=== PATIENT | male | born 1985 | race Caucasian/White ===

== ENCOUNTER 2023-06-27 13:15 | Emergency (ER) | payer MEDICAID ==
[~2023-06-27] VITALS: Ht 177.8 cm; Wt 77.0 kg
[~2023-06-27 13:15] MED LIST: CYCL-1 PO; IBUP-1985 PO
[2023-06-27 13:27] VITALS: BP 126/86; PULSE 88; RESP 18; TEMP 97.8; O2SAT 99
[2023-06-27] MEDS ORDERED: methadone 10mg tablet PO ONE (13:50)
== END 2023-06-27 15:19 | disposition home or self-care (01) ==
LOC: ER 13:15
DX: F11.10 Opioid abuse, uncomplicated (principal); Z88.0 Allergy status to penicillin; Z76.0 Encounter for issue of repeat prescription
CPT/HCPCS: 99283

== ENCOUNTER 2023-07-14 12:34 | Emergency (ER) | payer MEDICAID ==
[~2023-07-14] VITALS: Ht 177.8 cm; Wt 81.8 kg
[2023-07-14 12:50] VITALS: BP 137/93; PULSE 91; RESP 18; TEMP 97.9; O2SAT 99
[2023-07-14] MEDS ORDERED: methadone 10mg tablet PO ONE ×2 (13:20)
== END 2023-07-14 14:43 | disposition home or self-care (01) ==
LOC: ER 12:34
DX: F11.20 Opioid dependence, uncomplicated (principal); Z88.0 Allergy status to penicillin; Z79.1 Long term (current) use of non-steroidal anti-inflammatories (NSAID); Z79.899 Other long term (current) drug therapy
CPT/HCPCS: 99283

== ENCOUNTER 2023-07-21 11:43 | Emergency (ER) | payer MEDICAID ==
[~2023-07-21] VITALS: Ht 177.8 cm; Wt 84.4 kg
[2023-07-21 11:48] VITALS: BP 125/87; PULSE 109; RESP 16; TEMP 98.4; O2SAT 98
== END 2023-07-21 13:09 | disposition home or self-care (01) ==
LOC: ER 11:43
DX: F11.10 Opioid abuse, uncomplicated (principal); Z76.0 Encounter for issue of repeat prescription; Z88.0 Allergy status to penicillin; Z79.899 Other long term (current) drug therapy
CPT/HCPCS: 99281